=== PATIENT | female | born 1975 | race Caucasian/White ===

== ENCOUNTER → 2017-05-24 | Outpatient (CLI) | payer OTHER ==
[2016-02-17 13:45] VITALS: BP 117/57
[~2017-05-24] MED LIST: ESTRACE1 M1 PO; ZOLOFT 50MG50 MG PO
== END ==
LOC: RAD 07:57
DX: K80.20 Calculus of gallbladder without cholecystitis without obstruction (principal); K83.8 Other specified diseases of biliary tract

== ENCOUNTER 2018-10-11 13:01 | Emergency (ER) | payer SELFPAY ==
[~2018-10-11] VITALS: Wt 88.7 kg
[2018-10-11 13:27] LABS: EOS # 0.1 (0.04-0.40); EOS % 1.6 % (1.0-5.0); HEMATOCRIT 44.1 % (37.0-47.0); HEMOGLOBIN 15.4 g/dL (12.5-16.0); LYMPH# 2.7 (1.50-4.00); MEAN CELL VOLUME 89 fl (78-100); MEAN CORPUSCULAR HEMOGLOBIN 31 pg (27-31); MEAN CORPUSCULAR HGB CONC 35 g/dL (33-37); MEAN PLATELET VOLUME 9.8 fl (7.4-10.4); MONO # 0.5 (0.20-0.80); NEU # 3.6 (1.40-6.50); PLATELET COUNT 281 K/mm3 (130-400); RED BLOOD COUNT 4.95 M/mm3 (4.10-5.30); RED CELL DISTRIBUTION WIDTH 12.6 % (11.5-14.5)
[2018-10-11 13:30] LABS: ALBUMIN 4.4 g/dL (3.5-5.0); POTASSIUM 3.7 mmol/L (3.5-5.1); SODIUM 140 mmol/L (136-145)
[2018-10-11 13:32] LABS: CALCIUM 9.8 mg/dL (8.3-10.5)
[2018-10-11 13:33] LABS: GLUCOSE 101 mg/dL (65-105); TOTAL PROTEIN 7.9 g/dL (6.4-8.3)
[2018-10-11 13:34] LABS: CARBON DIOXIDE 23 mmol/L (22-29)
[2018-10-11 13:35] LABS: TOTAL BILIRUBIN 0.5 mg/dL (0.2-1.2)
[2018-10-11 13:37] LABS: PARTIAL THROMBOPLASTIN TIME 24.5 SECONDS (21.0-32.0); PROTHROMBIN TIME 9.6 SECONDS (9.0-12.0)
[2018-10-11 13:38] LABS: AST-SGOT 21 U/L (5-34)
[2018-10-11 13:39] LABS: ALT/SGPT 25 U/L (0-55)
[2018-10-11 13:51] LABS: TROPONIN-I < 0.03 ng/mL (<0.030)
[2018-10-11 14:22] LABS: URINE APPEARANCE CLEAR; URINE BILIRUBIN NEGATIVE (NEGATIVE); URINE BLOOD NEGATIVE (NEGATIVE); URINE COLOR YELLOW; URINE GLUCOSE NEGATIVE (NEGATIVE); URINE KETONE NEGATIVE (NEGATIVE); URINE LEUKOCYTE ESTERASE NEGATIVE (NEGATIVE); URINE NITRATE NEGATIVE (NEGATIVE); URINE PROTEIN(semi-quant) NEGATIVE (NEGATIVE); URINE UROBILINOGEN NORMAL (NORMAL)
[2018-10-11 19:52] VITALS: BP 148/74
== END 2018-10-11 19:36 | disposition short-term general hospital (02) ==
LOC: ED 13:01
PROVIDERS: Nurse Practitioner Family
DX: I63.9 Cerebral infarction, unspecified (principal); F32.9 Major depressive disorder, single episode, unspecified; Z90.710 Acquired absence of both cervix and uterus
CPT/HCPCS: A9585; J1650; J7030

== ENCOUNTER → 2018-11-22 | Outpatient (CLI) | payer SELFPAY ==
[2018-11-22 12:50] LABS: EOS # 0.1 (0.04-0.40); EOS % 2.2 % (1.0-5.0); HEMATOCRIT 42.9 % (37.0-47.0); HEMOGLOBIN 14.8 g/dL (12.5-16.0); LYMPH# 2.2 (1.50-4.00); MEAN CELL VOLUME 90 fl (78-100); MEAN CORPUSCULAR HEMOGLOBIN 31 pg (27-31); MEAN CORPUSCULAR HGB CONC 35 g/dL (33-37); MEAN PLATELET VOLUME 9.6 fl (7.4-10.4); MONO # 0.6 (0.20-0.80); NEU # 3.5 (1.40-6.50); PLATELET COUNT 253 K/mm3 (130-400); RED BLOOD COUNT 4.76 M/mm3 (4.10-5.30); RED CELL DISTRIBUTION WIDTH 12.5 % (11.5-14.5); WHITE BLOOD COUNT 6.4 K/mm3 (4.8-10.8)
[2018-11-22 13:25] LABS: ALBUMIN 4.4 g/dL (3.5-5.0); POTASSIUM 4.2 mmol/L (3.5-5.1)
[2018-11-22 13:26] LABS: CALCIUM 9.9 mg/dL (8.3-10.5)
[2018-11-22 13:27] LABS: TOTAL PROTEIN 7.4 g/dL (6.4-8.3)
[2018-11-22 13:29] LABS: TOTAL BILIRUBIN 0.3 mg/dL (0.2-1.2)
== END ==
LOC: LAB 12:34
PROVIDERS: Internal Medicine
DX: I63.411 Cerebral infarction due to embolism of right middle cerebral artery (principal); I95.9 Hypotension, unspecified; R10.821 Right upper quadrant rebound abdominal tenderness; R10.13 Epigastric pain; R53.83 Other fatigue; R11.2 Nausea with vomiting, unspecified; Z87.19 Personal history of other diseases of the digestive system

== ENCOUNTER 2018-12-27 13:00 | Outpatient (RCR) | payer OTHER | END 2019-01-16 | disposition still patient (30) | LOC: PT | DX: I63.511 Cerebral infarction due to unspecified occlusion or stenosis of right middle cerebral artery (principal) ==

== ENCOUNTER → 2019-01-11 | Outpatient (CLI) | payer SELFPAY ==
[2019-01-11 11:42] LABS: ALBUMIN 4.5 g/dL (3.5-5.0); CALCIUM 9.8 mg/dL (8.3-10.5); EOS # 0.2 (0.04-0.40); EOS % 2.5 % (1.0-5.0); HEMATOCRIT 44.6 % (37.0-47.0); HEMOGLOBIN 15.3 g/dL (12.5-16.0); MEAN CELL VOLUME 90 fl (78-100); MEAN CORPUSCULAR HEMOGLOBIN 31 pg (27-31); MEAN CORPUSCULAR HGB CONC 34 g/dL (33-37); MEAN PLATELET VOLUME 10.1 fl (7.4-10.4); MONO # 0.6 (0.20-0.80); PLATELET COUNT 299 K/mm3 (130-400); POTASSIUM 4.2 mmol/L (3.5-5.1); RED BLOOD COUNT 4.98 M/mm3 (4.10-5.30); RED CELL DISTRIBUTION WIDTH 12.2 % (11.5-14.5); WHITE BLOOD COUNT 5.9 K/mm3 (4.8-10.8)
[2019-01-11 11:44] LABS: TOTAL PROTEIN 8.1 g/dL (6.4-8.3)
[2019-01-11 11:46] LABS: TOTAL BILIRUBIN 0.4 mg/dL (0.2-1.2)
[2019-01-11 11:47] LABS: MAGNESIUM 1.9 mg/dL (1.60-2.60)
[2019-01-11 14:53] LABS: PROTHROMBIN TIME 9.5 SECONDS (9.0-12.0)
== END ==
LOC: LAB 11:16
PROVIDERS: Internal Medicine
DX: Z01.818 Encounter for other preprocedural examination (principal); I63.411 Cerebral infarction due to embolism of right middle cerebral artery; Q21.1 Atrial septal defect; I25.3 Aneurysm of heart; R10.13 Epigastric pain; R11.2 Nausea with vomiting, unspecified; Z87.19 Personal history of other diseases of the digestive system

== ENCOUNTER → 2019-09-17 | Outpatient (CLI) | payer SELFPAY | LOC: RAD 16:32 | DX: Q21.1 Atrial septal defect (principal); I25.3 Aneurysm of heart; I63.411 Cerebral infarction due to embolism of right middle cerebral artery; N63.20 Unspecified lump in the left breast, unspecified quadrant; Z86.73 Personal history of transient ischemic attack (TIA), and cerebral infarction without residual deficits ==

== ENCOUNTER 2019-12-20 20:47 | Inpatient (IN) | payer MEDICAID ==
[~2019-12-20] VITALS: Ht 167.6 cm; Wt 89.5 kg
[2019-12-20] MEDS ORDERED: ATIVAN0.5 MG PO (21:01)
[2019-12-20] MEDS ORDERED: ADULT ASPIRIN R81 MG PO (21:02)
[2019-12-20] MEDS ORDERED: ATORVASTATIN CA40 MG PO (21:02)
[2019-12-20] MEDS ORDERED: DESVENLAFAXINE50 M3 PO (21:02)
[2019-12-20] MEDS ORDERED: CLARITIN 1010 MG/TAB PO (21:03)
[2019-12-20] MEDS ORDERED: COMPAZINE10 M2 PO (21:04)
[2019-12-20] MEDS ORDERED: DECADRON4 M1 PO (21:04)
[2019-12-20 22:22] LABS: HEMATOCRIT 20.7 % (37.0-47.0); HEMOGLOBIN 7.1 g/dL (12.5-16.0); MEAN CELL VOLUME 99 fl (78-100); MEAN CORPUSCULAR HEMOGLOBIN 34 pg (27-31); MEAN CORPUSCULAR HGB CONC 34 g/dL (33-37); MEAN PLATELET VOLUME 10.2 fl (7.4-10.4); PLATELET COUNT 88 K/mm3 (130-400); RED CELL DISTRIBUTION WIDTH 16.3 % (11.5-14.5); WHITE BLOOD COUNT 0.4 K/mm3 (4.8-10.8)
[2019-12-20 22:23] LABS: ALBUMIN 3.6 g/dL (3.5-5.0); CALCIUM 8.5 mg/dL (8.3-10.5); CARBON DIOXIDE 20 mmol/L (22-29); GLUCOSE 113 mg/dL (65-105); POTASSIUM 3.5 mmol/L (3.5-5.1); SODIUM 134 mmol/L (136-145); TOTAL BILIRUBIN 0.9 mg/dL (0.2-1.2)
[2019-12-20 22:31] LABS: ALT/SGPT 22 U/L (0-55); AST-SGOT 12 U/L (5-34)
[2019-12-20 22:58] LABS: TROPONIN-I < 0.03 ng/mL (<0.030)
[2019-12-20 23:40] LABS: LYMPHOCYTE 86 % (20-51); MONOCYTE 10 % (3-10); NEUTROPHILS 4 % (42-75)
[2019-12-20 23:41] LABS: OVALOCYTES 1+; TEAR DROP CELLS 1+
[2019-12-20 23:43] LABS: URINE APPEARANCE HAZY; URINE COLOR YELLOW; URINE GLUCOSE NEGATIVE (NEGATIVE); URINE PROTEIN(semi-quant) NEGATIVE (NEGATIVE)
[2019-12-20 23:44] LABS: URINE BILIRUBIN NEGATIVE (NEGATIVE); URINE BLOOD NEGATIVE (NEGATIVE); URINE KETONE 1+ (NEGATIVE); URINE LEUKOCYTE ESTERASE TRACE (NEGATIVE); URINE NITRATE NEGATIVE (NEGATIVE); URINE UROBILINOGEN 1 mg/dL (NORMAL)
[2019-12-21] VITALS (7 sets, daily range): BP systolic 101–119; BP diastolic 47–70
[2019-12-21 07:24] LABS: MEAN CELL VOLUME 100 fl (78-100); MEAN CORPUSCULAR HEMOGLOBIN 35 pg (27-31); MEAN CORPUSCULAR HGB CONC 35 g/dL (33-37); MEAN PLATELET VOLUME 10.5 fl (7.4-10.4); PLATELET COUNT 83 K/mm3 (130-400); RED CELL DISTRIBUTION WIDTH 16.2 % (11.5-14.5)
[2019-12-21 07:29] LABS: HEMOGLOBIN 6.7 g/dL (12.5-16.0); RED BLOOD COUNT 1.91 M/mm3 (4.10-5.30); WHITE BLOOD COUNT 0.4 K/mm3 (4.8-10.8)
[2019-12-21 07:33] LABS: LYMPHOCYTE 73 % (20-51); MONOCYTE 10 % (3-10); NEUTROPHILS 13 % (42-75)
[2019-12-21 07:34] LABS: TEAR DROP CELLS 1+
[2019-12-21 07:36] LABS: ALBUMIN 3.3 g/dL (3.5-5.0)
[2019-12-21 07:37] LABS: POTASSIUM 3.4 mmol/L (3.5-5.1)
[2019-12-21 07:38] LABS: CALCIUM 8.4 mg/dL (8.3-10.5)
[2019-12-21 07:39] LABS: TOTAL PROTEIN 5.7 g/dL (6.4-8.3)
[2019-12-21 07:41] LABS: TOTAL BILIRUBIN 0.6 mg/dL (0.2-1.2)
[2019-12-22 01:56] VITALS: BP 110/48
[2019-12-22 06:34] VITALS: BP 111/60
[2019-12-22 07:56] LABS: MEAN CELL VOLUME 101 fl (78-100); MEAN CORPUSCULAR HEMOGLOBIN 34 pg (27-31); MEAN CORPUSCULAR HGB CONC 34 g/dL (33-37); MEAN PLATELET VOLUME 9.7 fl (7.4-10.4); PLATELET COUNT 76 K/mm3 (130-400); RED CELL DISTRIBUTION WIDTH 16.4 % (11.5-14.5)
[2019-12-22 08:08] LABS: HEMATOCRIT 18.1 % (37.0-47.0); HEMOGLOBIN 6.1 g/dL (12.5-16.0); RED BLOOD COUNT 1.79 M/mm3 (4.10-5.30); WHITE BLOOD COUNT 0.9 K/mm3 (4.8-10.8)
[2019-12-22 08:14] LABS: POTASSIUM 3.3 mmol/L (3.5-5.1)
[2019-12-22 08:17] LABS: BAND 10 % (0-10); CALCIUM 8.4 mg/dL (8.3-10.5); LYMPHOCYTE 50 % (20-51); MONOCYTE 12 % (3-10); MYELOCYTE 4 % (0-0); NEUTROPHILS 22 % (42-75); TOTAL PROTEIN 5.3 g/dL (6.4-8.3)
[2019-12-22 08:18] LABS: MICROCYTOSIS 1+
[2019-12-22 08:19] LABS: OVALOCYTES 1+; POLYCHROMASIA 1+; TEAR DROP CELLS 1+; TOTAL BILIRUBIN 0.5 mg/dL (0.2-1.2)
[2019-12-22 09:15] LABS: NUCLEATED RED BLOOD CELL 6 (0-6)
[2019-12-22 09:43] LABS: RESPIRATORY VIRUS PANEL-PCR AMS
[2019-12-22 10:08] VITALS: BP 138/65
[2019-12-22 14:00] VITALS: BP 144/70
[2019-12-22 17:56] VITALS: BP 121/63
[2019-12-22 21:41] VITALS: BP 117/55
[2019-12-23] VITALS (25 sets, daily range): BP systolic 90–152; BP diastolic 54–81
[2019-12-23 06:58] LABS: MEAN CELL VOLUME 102 fl (78-100); MEAN CORPUSCULAR HEMOGLOBIN 34 pg (27-31); MEAN CORPUSCULAR HGB CONC 34 g/dL (33-37); MEAN PLATELET VOLUME 10.8 fl (7.4-10.4); PLATELET COUNT 111 K/mm3 (130-400); RED CELL DISTRIBUTION WIDTH 16.8 % (11.5-14.5); WHITE BLOOD COUNT 2.6 K/mm3 (4.8-10.8)
[2019-12-23 07:12] LABS: POTASSIUM 3.3 mmol/L (3.5-5.1)
[2019-12-23 07:13] LABS: CALCIUM 8.3 mg/dL (8.3-10.5)
[2019-12-23 07:21] LABS: BAND 10 % (0-10); HEMATOCRIT 16.9 % (37.0-47.0); HEMOGLOBIN 5.7 g/dL (12.5-16.0); LYMPHOCYTE 34 % (20-51); METAMYELOCYTE 6 % (0-0); MONOCYTE 10 % (3-10); MYELOCYTE 1 % (0-0); NEUTROPHILS 38 % (42-75); NUCLEATED RED BLOOD CELL 3 (0-6); POLYCHROMASIA 1+; RED BLOOD COUNT 1.66 M/mm3 (4.10-5.30)
[2019-12-23 07:22] LABS: OVALOCYTES 1+; TEAR DROP CELLS 1+
[2019-12-23 20:02] LABS: MEAN CELL VOLUME 97 fl (78-100); MEAN CORPUSCULAR HEMOGLOBIN 32 pg (27-31); MEAN CORPUSCULAR HGB CONC 33 g/dL (33-37); MEAN PLATELET VOLUME 9.6 fl (7.4-10.4); PLATELET COUNT 129 K/mm3 (130-400); RED BLOOD COUNT 2.45 M/mm3 (4.10-5.30)
[2019-12-23 20:06] LABS: HEMATOCRIT 23.7 % (37.0-47.0); HEMOGLOBIN 7.8 g/dL (12.5-16.0); RED CELL DISTRIBUTION WIDTH 19.4 % (11.5-14.5)
[2019-12-23 20:13] LABS: ALBUMIN 3.2 g/dL (3.5-5.0); POTASSIUM 3.5 mmol/L (3.5-5.1)
[2019-12-23 20:14] LABS: CALCIUM 8.3 mg/dL (8.3-10.5); LYMPHOCYTE 29 % (20-51); MONOCYTE 13 % (3-10); NEUTROPHILS 53 % (42-75)
[2019-12-23 20:15] LABS: HYPOCHROMIA 1+
[2019-12-23 20:16] LABS: TOTAL PROTEIN 5.8 g/dL (6.4-8.3)
[2019-12-23 20:17] LABS: TOTAL BILIRUBIN 0.7 mg/dL (0.2-1.2)
[2019-12-24 02:04] VITALS: BP 126/76
[2019-12-24 04:37] VITALS: BP 115/65
[2019-12-24 06:09] LABS: HEMATOCRIT 25.2 % (37.0-47.0); HEMOGLOBIN 8.3 g/dL (12.5-16.0); MEAN CELL VOLUME 96 fl (78-100); MEAN CORPUSCULAR HEMOGLOBIN 32 pg (27-31); MEAN CORPUSCULAR HGB CONC 33 g/dL (33-37); MEAN PLATELET VOLUME 10.2 fl (7.4-10.4); PLATELET COUNT 170 K/mm3 (130-400); RED BLOOD COUNT 2.62 M/mm3 (4.10-5.30); WHITE BLOOD COUNT 4.6 K/mm3 (4.8-10.8)
[2019-12-24 06:18] LABS: ALBUMIN 3.2 g/dL (3.5-5.0)
[2019-12-24 06:19] LABS: POTASSIUM 3.9 mmol/L (3.5-5.1)
[2019-12-24 06:20] LABS: CALCIUM 8.7 mg/dL (8.3-10.5)
[2019-12-24 06:21] LABS: TOTAL PROTEIN 5.8 g/dL (6.4-8.3)
[2019-12-24 06:23] LABS: TOTAL BILIRUBIN 0.4 mg/dL (0.2-1.2)
[2019-12-24 06:49] LABS: BAND 7 % (0-10); LYMPHOCYTE 29 % (20-51); METAMYELOCYTE 1 % (0-0); MONOCYTE 7 % (3-10); MYELOCYTE 1 % (0-0); NEUTROPHILS 54 % (42-75)
[2019-12-24 06:50] LABS: NUCLEATED RED BLOOD CELL 7 (0-6); OVALOCYTES 1+; POLYCHROMASIA 1+; TEAR DROP CELLS 1+
[2019-12-24 10:04] VITALS: BP 120/76
[2019-12-24 14:01] VITALS: BP 120/67
== END 2019-12-24 15:23 | disposition short-term general hospital (02) | DRG 810 ==
LOC: ED 20:47 → MED/SURG 12-21 01:12
PROVIDERS: Internal Medicine; Nurse Practitioner; ADMIT Nurse Practitioner Family
DX: D70.2 Other drug-induced agranulocytosis (principal); C50.919 Malignant neoplasm of unspecified site of unspecified female breast; R50.81 Fever presenting with conditions classified elsewhere; E87.6 Hypokalemia; I89.0 Lymphedema, not elsewhere classified; Z20.828 Contact with and (suspected) exposure to other viral communicable diseases; D63.8 Anemia in other chronic diseases classified elsewhere; T45.1X5A Adverse effect of antineoplastic and immunosuppressive drugs, initial encounter; K59.00 Constipation, unspecified; R53.1 Weakness; Z79.82 Long term (current) use of aspirin
CPT/HCPCS: C9113; J0692; J0696; J0780; J1650; J2405; J3370; J7030; J7050; J7120; P9040; Q9967

== ENCOUNTER 2020-04-24 10:10 | Outpatient (RCR) | payer MEDICAID ==
[2020-04-24 10:10] VITALS: BP 115/76
[~2020-04-24 10:10] MED LIST changes: +ADULT ASPIRIN R81 MG PO; +ATIVAN0.5 MG PO; +ATORVASTATIN CA40 MG PO; +CLARITIN 1010 MG/TAB PO; +COMPAZINE10 M2 PO; +DECADRON4 M1 PO; +DESVENLAFAXINE50 M3 PO
--- NOTE | 2020-04-24 10:15 | NUR ---
PORT-A-CATH ACCESSED AND FLUSHED WITH 10CC OF NORMAL SALINE. PORT-A-CATH IS THEN HEPARIN LOCKED PER PROTOCOL AND DEACCESSED. PROCEDURE TOLERATED WELL. BLOOD RETURN WAS OBTAINED AND PORT FLUSHES EASILY.
== END 2020-07-23 | disposition home or self-care (01) ==
LOC: AMSURD
DX: C50.912 Malignant neoplasm of unspecified site of left female breast (principal); Z17.1 Estrogen receptor negative status [ER-]
CPT/HCPCS: J1644

== ENCOUNTER → 2020-07-13 | Outpatient (CLI) | payer MEDICAID ==
[2020-07-13 11:08] LABS: HEMOGLOBIN 13.7 g/dL (12.5-16.0); MEAN CELL VOLUME 93 fl (78-100); MEAN CORPUSCULAR HEMOGLOBIN 31 pg (27-31); MEAN CORPUSCULAR HGB CONC 33 g/dL (33-37); MEAN PLATELET VOLUME 8.9 fl (7.4-10.4); PLATELET COUNT 208 K/mm3 (130-400); RED BLOOD COUNT 4.43 M/mm3 (4.10-5.30); RED CELL DISTRIBUTION WIDTH 13.4 % (11.5-14.5); WHITE BLOOD COUNT 4.3 K/mm3 (4.8-10.8)
[2020-07-13 11:18] LABS: ALBUMIN 4.2 g/dL (3.5-5.0); POTASSIUM 3.9 mmol/L (3.5-5.1)
[2020-07-13 11:19] LABS: CALCIUM 9.2 mg/dL (8.3-10.5)
[2020-07-13 11:20] LABS: TOTAL PROTEIN 7.1 g/dL (6.4-8.3)
[2020-07-13 11:22] LABS: TOTAL BILIRUBIN 0.4 mg/dL (0.2-1.2)
[2020-07-13 12:52] LABS: LYMPHOCYTE 31 % (20-51); MONOCYTE 11 % (3-10); NEUTROPHILS 55 % (42-75)
== END ==
LOC: LAB 10:49
PROVIDERS: Internal Medicine
DX: C50.919 Malignant neoplasm of unspecified site of unspecified female breast (principal); F44.5 Conversion disorder with seizures or convulsions

== ENCOUNTER → 2020-07-30 | Outpatient (CLI) | payer MEDICAID | LOC: RAD 16:15 | DX: I63.9 Cerebral infarction, unspecified (principal); D18.09 Hemangioma of other sites; Z80.3 Family history of malignant neoplasm of breast | CPT/HCPCS: A9585 ==

== ENCOUNTER → 2021-02-08 | Outpatient (CLI) | payer MEDICAID ==
[~2021-02-08] MED LIST changes: -CLARITIN 1010 MG/TAB PO; +CLARITIN10 M1 PO; +NORCO 325 MG-51 TA1 PO; +ZOFRAN ODT4 MG PO
[2021-02-08 10:44] LABS: BASO # 0.02 K/mm3 (0.02-0.10); EOS # 0.07 K/mm3 (0.04-0.40); EOS % 1.4 % (1.0-5.0); HEMATOCRIT 38.2 % (37.0-47.0); HEMOGLOBIN 12.8 g/dL (12.5-16.0); LYMPH# 1.37 K/mm3 (1.50-4.00); MEAN CELL VOLUME 94 fl (78-100); MEAN CORPUSCULAR HEMOGLOBIN 31 pg (27-31); MEAN CORPUSCULAR HGB CONC 34 g/dL (33-37); MEAN PLATELET VOLUME 8.6 fl (7.4-10.4); MONO # 0.43 K/mm3 (0.20-0.80); NEU # 3.13 K/mm3 (1.40-6.50); PLATELET COUNT 245 K/mm3 (130-400); RED BLOOD COUNT 4.08 M/mm3 (4.10-5.30); RED CELL DISTRIBUTION WIDTH 12.3 % (11.5-14.5); WHITE BLOOD COUNT 5.1 K/mm3 (4.8-10.8)
[2021-02-08 11:16] LABS: POTASSIUM 3.8 mmol/L (3.5-5.1)
[2021-02-08 11:17] LABS: CALCIUM 9.6 mg/dL (8.3-10.5)
[2021-02-08 11:19] LABS: TOTAL PROTEIN 7.3 g/dL (6.4-8.3)
[2021-02-08 11:20] LABS: TOTAL BILIRUBIN 0.3 mg/dL (0.2-1.2)
== END ==
LOC: LAB 10:29
PROVIDERS: Internal Medicine
DX: Z00.00 Encounter for general adult medical examination without abnormal findings (principal)

== ENCOUNTER 2021-02-23 10:12 | Emergency (ER) | payer MEDICAID ==
[~2021-02-23] VITALS: Ht 167.6 cm; Wt 95.5 kg
[~2021-02-23 10:12] MED LIST changes: -NORCO 325 MG-51 TA1 PO; -ZOFRAN ODT4 MG PO
[2021-02-23 11:42] LABS: BASO # 0.01 K/mm3 (0.02-0.10); EOS # 0.11 K/mm3 (0.04-0.40); EOS % 1.9 % (1.0-5.0); HEMATOCRIT 38.8 % (37.0-47.0); HEMOGLOBIN 12.7 g/dL (12.5-16.0); LYMPH# 0.97 K/mm3 (1.50-4.00); MEAN CELL VOLUME 93 fl (78-100); MEAN CORPUSCULAR HEMOGLOBIN 31 pg (27-31); MEAN CORPUSCULAR HGB CONC 33 g/dL (33-37); MEAN PLATELET VOLUME 8.7 fl (7.4-10.4); MONO # 0.65 K/mm3 (0.20-0.80); NEU # 4.02 K/mm3 (1.40-6.50); PLATELET COUNT 239 K/mm3 (130-400); RED BLOOD COUNT 4.17 M/mm3 (4.10-5.30); RED CELL DISTRIBUTION WIDTH 11.9 % (11.5-14.5); WHITE BLOOD COUNT 5.8 K/mm3 (4.8-10.8)
[2021-02-23 11:53] LABS: ALBUMIN 4.1 g/dL (3.5-5.0); POTASSIUM 3.7 mmol/L (3.5-5.1)
[2021-02-23 11:54] LABS: CALCIUM 10.1 mg/dL (8.3-10.5)
[2021-02-23 11:56] LABS: TOTAL PROTEIN 8.2 g/dL (6.4-8.3)
[2021-02-23 11:57] LABS: TOTAL BILIRUBIN 0.3 mg/dL (0.2-1.2)
[2021-02-23 12:11] LABS: URINE APPEARANCE CLEAR; URINE BILIRUBIN NEGATIVE (NEGATIVE); URINE BLOOD NEGATIVE (NEGATIVE); URINE COLOR YELLOW; URINE GLUCOSE NEGATIVE (NEGATIVE); URINE KETONE NEGATIVE (NEGATIVE); URINE LEUKOCYTE ESTERASE NEGATIVE (NEGATIVE); URINE NITRATE NEGATIVE (NEGATIVE); URINE PROTEIN(semi-quant) NEGATIVE (NEGATIVE); URINE UROBILINOGEN NORMAL (NORMAL)
[2021-02-23 12:12] LABS: URINE WBC 0-1 /hpf (0-3)
[2021-02-23 12:19] LABS: PROTHROMBIN TIME 10.1 SECONDS (9.0-12.0)
[2021-02-23 12:31] LABS: D-DIMER 3.17 mg/L FEU (0.15-0.50)
[2021-02-23] MEDS ORDERED: ZOFRAN ODT4 MG PO (13:44)
[2021-02-23] MEDS ORDERED: NORCO 325 MG-51 TA1 PO (13:44)
[2021-02-23 13:45] VITALS: BP 131/85
[2021-02-23 20:59] LABS: PARTIAL THROMBOPLASTIN TIME 27.3 SECONDS (21.0-32.0)
== END 2021-02-23 14:08 | disposition home or self-care (01) ==
LOC: ED 10:12
PROVIDERS: Nurse Practitioner
DX: M79.652 Pain in left thigh (principal); E66.9 Obesity, unspecified; Z20.822 Contact with and (suspected) exposure to COVID-19
CPT/HCPCS: J1650; J1885; J2405; J3010

== ENCOUNTER → 2021-02-24 | Outpatient (CLI) | payer MEDICAID ==
[~2021-02-24] MED LIST changes: +NORCO 325 MG-51 TA1 PO; +ZOFRAN ODT4 MG PO
== END ==
LOC: RAD 08:15 → VAS 08:16 → RAD 08:16
DX: M79.605 Pain in left leg (principal)

== ENCOUNTER → 2021-03-02 | Outpatient (CLI) | payer MEDICAID | LOC: RAD 14:49 | DX: M25.552 Pain in left hip (principal) ==

== ENCOUNTER → 2021-03-09 | Outpatient (CLI) | payer MEDICAID ==
[2021-03-09 10:45] LABS: BASO # 0.02 K/mm3 (0.02-0.10); EOS # 0.06 K/mm3 (0.04-0.40); HEMATOCRIT 37.5 % (37.0-47.0); HEMOGLOBIN 11.9 g/dL (12.5-16.0); LYMPH# 1.02 K/mm3 (1.50-4.00); MEAN CELL VOLUME 92 fl (78-100); MEAN CORPUSCULAR HEMOGLOBIN 29 pg (27-31); MEAN CORPUSCULAR HGB CONC 32 g/dL (33-37); MEAN PLATELET VOLUME 8.6 fl (7.4-10.4); MONO # 0.44 K/mm3 (0.20-0.80); NEU # 4.64 K/mm3 (1.40-6.50); PLATELET COUNT 371 K/mm3 (130-400); RED BLOOD COUNT 4.06 M/mm3 (4.10-5.30); RED CELL DISTRIBUTION WIDTH 12.1 % (11.5-14.5); WHITE BLOOD COUNT 6.2 K/mm3 (4.8-10.8)
[2021-03-09 10:50] LABS: ALBUMIN 3.9 g/dL (3.5-5.0); POTASSIUM 3.8 mmol/L (3.5-5.1)
[2021-03-09 10:52] LABS: CALCIUM 10.1 mg/dL (8.3-10.5)
[2021-03-09 10:53] LABS: TOTAL PROTEIN 7.8 g/dL (6.4-8.3)
[2021-03-09 10:55] LABS: TOTAL BILIRUBIN 0.3 mg/dL (0.2-1.2)
[2021-03-09 10:58] LABS: DIRECT BILIRUBIN 0.2 mg/dL (0.0-0.5)
[2021-03-09 11:00] LABS: PH-URINE 5.5 (5.0 - 8.0); URINE APPEARANCE CLEAR; URINE BILIRUBIN NEGATIVE (NEGATIVE); URINE BLOOD NEGATIVE (NEGATIVE); URINE COLOR YELLOW; URINE GLUCOSE NEGATIVE (NEGATIVE); URINE KETONE NEGATIVE (NEGATIVE); URINE LEUKOCYTE ESTERASE TRACE (NEGATIVE); URINE NITRATE NEGATIVE (NEGATIVE); URINE PROTEIN(semi-quant) TRACE mg/dL (NEGATIVE); URINE UROBILINOGEN NORMAL (NORMAL)
[2021-03-09 11:41] LABS: ERYTHROCYTE SEDIMENTATION RATE 125 mm/hr (0-20)
== END ==
LOC: LAB 10:23
PROVIDERS: Internal Medicine
DX: R50.9 Fever, unspecified (principal)

== ENCOUNTER → 2021-03-10 | Outpatient (CLI) | payer MEDICAID | LOC: RAD 09:53 | DX: R10.84 Generalized abdominal pain (principal); M89.9 Disorder of bone, unspecified | CPT/HCPCS: Q9967 ==

== ENCOUNTER → 2021-03-11 | Outpatient (CLI) | payer MEDICAID | LOC: RAD 12:52 | DX: C79.51 Secondary malignant neoplasm of bone (principal); M67.88 Other specified disorders of synovium and tendon, other site ==

== ENCOUNTER → 2021-06-08 | Outpatient (CLI) | payer MEDICAID ==
[~2021-06-08] VITALS: Ht 167.6 cm; Wt 95.5 kg
[~2021-06-08] MED LIST changes: +MELATONIN10 MG PO; +MS CONTIN30 MG PO; +OXYCODONE HCL10 M1 PO; +POTASSIUM CH2 MEQ/ML PO
[2021-06-08 10:00] VITALS: BP 133/81
[2021-06-08 11:02] LABS: ALBUMIN 3.9 g/dL (3.5-5.0); HEMATOCRIT 21.7 % (37.0-47.0); HEMOGLOBIN 7.3 g/dL (12.5-16.0); MEAN CELL VOLUME 98 fl (78-100); MEAN CORPUSCULAR HEMOGLOBIN 33 pg (27-31); MEAN CORPUSCULAR HGB CONC 34 g/dL (33-37); POTASSIUM 3.4 mmol/L (3.5-5.1); RED CELL DISTRIBUTION WIDTH 18.3 % (11.5-14.5); WHITE BLOOD COUNT 2.7 K/mm3 (4.8-10.8)
[2021-06-08 11:03] LABS: CALCIUM 8.9 mg/dL (8.3-10.5)
[2021-06-08 11:05] LABS: TOTAL PROTEIN 6.6 g/dL (6.4-8.3)
[2021-06-08 11:06] LABS: TOTAL BILIRUBIN 0.5 mg/dL (0.2-1.2)
[2021-06-08 11:38] LABS: RED BLOOD COUNT 2.22 M/mm3 (4.10-5.30)
[2021-06-08 11:39] LABS: PLATELET COUNT 25 K/mm3 (130-400)
[2021-06-08 12:49] LABS: LYMPHOCYTE 18 % (20-51); METAMYELOCYTE 30 % (0-0); MONOCYTE 4 % (3-10); NEUTROPHILS 48 % (42-75)
== END ==
LOC: AMSURD 09:42
PROVIDERS: Nurse Practitioner
DX: R23.8 Other skin changes (principal); Z92.21 Personal history of antineoplastic chemotherapy
CPT/HCPCS: J1644

== ENCOUNTER 2021-09-10 23:12 | Emergency (ER) | payer MEDICAID ==
[~2021-09-10] VITALS: Ht 167.6 cm; Wt 81.8 kg
[2021-09-10] MEDS ORDERED: MS CONTIN30 MG PO (23:50)
[2021-09-11 00:59] LABS: EOS # 0.03 K/mm3 (0.04-0.40); EOS % 0.6 % (1.0-5.0); HEMATOCRIT 40.2 % (37.0-47.0); HEMOGLOBIN 13.5 g/dL (12.5-16.0); LYMPH# 0.83 K/mm3 (1.50-4.00); MEAN CELL VOLUME 93 fl (78-100); MEAN CORPUSCULAR HEMOGLOBIN 31 pg (27-31); MEAN CORPUSCULAR HGB CONC 34 g/dL (33-37); MEAN PLATELET VOLUME 9.1 fl (7.4-10.4); NEU # 3.64 K/mm3 (1.40-6.50); PLATELET COUNT 151 K/mm3 (130-400); RED BLOOD COUNT 4.31 M/mm3 (4.10-5.30); WHITE BLOOD COUNT 4.9 K/mm3 (4.8-10.8)
[2021-09-11 01:10] LABS: POTASSIUM 3.5 mmol/L (3.5-5.1)
[2021-09-11 01:11] LABS: CALCIUM 9.4 mg/dL (8.3-10.5)
[2021-09-11 03:30] VITALS: BP 107/86
== END 2021-09-11 03:30 | disposition home or self-care (01) ==
LOC: ED 23:12
PROVIDERS: Family Medicine
DX: C50.919 Malignant neoplasm of unspecified site of unspecified female breast (principal); G43.909 Migraine, unspecified, not intractable, without status migrainosus
CPT/HCPCS: J1885; J2550; J7030